=== PATIENT | female | born 1975 | race Caucasian/White ===

== ENCOUNTER 2017-01-11 08:10 | Emergency (ER) | payer OTHER | END 2017-01-11 08:40 | disposition home or self-care (01) | LOC: MADERS 08:10 | DX: H10.12 Acute atopic conjunctivitis, left eye (principal); G43.909 Migraine, unspecified, not intractable, without status migrainosus; F31.9 Bipolar disorder, unspecified; F41.9 Anxiety disorder, unspecified; Z79.899 Other long term (current) drug therapy | CPT/HCPCS: 99282 ==

== ENCOUNTER 2017-07-09 12:39 | Emergency (ER) | payer MEDICAID, OTHER ==
[2017-07-09] MEDS ORDERED: Ibuprofen 800 MG TAB ONE (13:32)
--- NOTE | 2017-07-09 13:48 | RAD ---
FOUR VIEWS LEFT KNEE: HISTORY: Left knee pain after trauma. FINDINGS: AP, lateral, and both oblique views left knee are obtained. The left knee is unremarkable. No evidence of left knee fractures, subluxations, or bony lesions see n. IMPRESSION: Normal 4 views left knee. POS: [facility]
== END 2017-07-09 13:58 | disposition home or self-care (01) ==
LOC: MADERS 12:39
DX: S80.02XA Contusion of left knee, initial encounter (principal); G43.909 Migraine, unspecified, not intractable, without status migrainosus; F41.9 Anxiety disorder, unspecified; F31.9 Bipolar disorder, unspecified; Z79.899 Other long term (current) drug therapy; W17.89XA Other fall from one level to another, initial encounter; Y93.01 Activity, walking, marching and hiking

== ENCOUNTER 2017-09-10 16:05 | Emergency (ER) | payer OTHER | END 2017-09-10 17:00 | disposition home or self-care (01) | LOC: MADERS 16:05 | DX: S80.12XA Contusion of left lower leg, initial encounter (principal); G43.909 Migraine, unspecified, not intractable, without status migrainosus; F41.9 Anxiety disorder, unspecified; F31.9 Bipolar disorder, unspecified; Z79.899 Other long term (current) drug therapy; X58.XXXA Exposure to other specified factors, initial encounter | CPT/HCPCS: 99283 ==

== ENCOUNTER 2020-11-15 10:20 | Emergency (ER) | payer BC ==
[2020-11-16 16:25] LABS: SARS-CoV-2 PCR by NAA Not Detected (NotDetected)
== END 2020-11-15 11:15 | disposition home or self-care (01) ==
LOC: MADERS 10:20
DX: J02.9 Acute pharyngitis, unspecified (principal); R05 Cough; R19.7 Diarrhea, unspecified; R09.81 Nasal congestion; Z20.822 Contact with and (suspected) exposure to COVID-19; G43.909 Migraine, unspecified, not intractable, without status migrainosus; Z79.899 Other long term (current) drug therapy
CPT/HCPCS: 99283; U0003; U0005

== ENCOUNTER 2020-11-24 15:40 | Emergency (ER) | payer BC ==
[2020-11-24] MEDS ORDERED: Dexamethasone 10 MG/ML VIAL ONE ×2 (17:27→17:37)
[2020-11-24] MEDS ORDERED: Ketorolac Tromethamine 30 MG/ML VIAL ONE (17:27)
[2020-11-24] MEDS ORDERED: Metoclopramide HCl 10 MG/2 ML VIAL ONE (17:27)
[2020-11-24 17:34] LABS: #Basophils 0.1 thou/uL (0.0-0.2); #Lymphocytes 1.1 thou/uL (1.20-3.40); #Monocytes 0.7 thou/uL (0.11-0.59); #Neutrophils 3.2 thou/uL (1.40-6.50); %Basophils 1.4 % (0.0-1.0); %Eosinophils 0.1 % (0.0-10.0); %Lymphocytes 21.9 % (21.0-51.0); %Monocytes 13.6 % (0.0-10.0); %Neutrophils 62.9 % (42.0-75.0); Hemoglobin 13.8 g/dL (12.0-16.0); Mean Corpuscular HGB CONC 32.9 g/dL (32.0-36.0); Mean Corpuscular Hemoglobin 30.4 pg (27.0-31.0); Mean Corpuscular Volume 92.3 fL (78.0-98.0); Mean Platelet Volume 10.9 fL (7.4-10.4); Platelet Count 165 thou/uL (130-400); Red Blood Cell (RBC) Count 4.53 mill/uL (4.20-5.40)
[2020-11-24 17:42] LABS: ALT (SGPT) 11 U/L (8-55); AST (SGOT) 12 U/L (5-34); Albumin 4.2 g/dL (3.5-5.0); Alkaline Phosphatase 44 U/L (40-110); Anion Gap 12 mmol/L (10-20); BUN (Urea Nitrogen) 6 mg/dL (7.0-18.7); Calc. Creatinine Clearance 0 mL/min (70-130); Calcium 9.4 mg/dL (7.8-10.44); Carbon Dioxide 21 mmol/L (22-29); Chloride 111 mmol/L (98-107); Globulin 2.6 g/dL (2.4-3.5); Glucose 85 mg/dL (70-105); Potassium 3.9 mmol/L (3.5-5.1); Protein, Total 6.8 g/dL (6.0-8.3); Sodium 140 mmol/L (136-145)
[2020-11-25 12:13] LABS: SARS-CoV-2 PCR by NAA DETECTED (NotDetected)
== END 2020-11-24 19:50 | disposition home or self-care (01) ==
LOC: MADERS 15:40
DX: U07.1 COVID-19 (principal); G43.909 Migraine, unspecified, not intractable, without status migrainosus
CPT/HCPCS: 71045; 80053; 84484; 85025; 93005; 96374; 96375; J1100; J1885; J2765; J7620; U0003; U0005

== ENCOUNTER 2021-10-15 12:25 | Emergency (ER) | payer BC | END 2021-10-15 13:47 | disposition home or self-care (01) | LOC: MADERS 12:25 | DX: S83.411A Sprain of medial collateral ligament of right knee, initial encounter (principal); K31.84 Gastroparesis; X50.1XXA Overexertion from prolonged static or awkward postures, initial encounter; Z79.899 Other long term (current) drug therapy ==

== ENCOUNTER 2022-01-09 15:25 | Emergency (ER) | payer BC ==
[2022-01-09] MEDS ORDERED: SUMAtriptan Succinate 6 MG/0.5 ML VIAL ONE (16:15)
== END 2022-01-09 18:07 | disposition home or self-care (01) ==
LOC: MADERS 15:25
DX: J06.9 Acute upper respiratory infection, unspecified (principal); R51.9 Headache, unspecified; K31.84 Gastroparesis; Z20.822 Contact with and (suspected) exposure to COVID-19; Z79.899 Other long term (current) drug therapy
CPT/HCPCS: 87081; 87430; 87804; 96372; 99283; J3030; U0003; U0005

== ENCOUNTER 2022-11-26 13:03 | Emergency (ER) | payer BC | END 2022-11-26 13:40 | disposition home or self-care (01) | LOC: MADERS 13:03 | DX: Z20.822 Contact with and (suspected) exposure to COVID-19 (principal) | CPT/HCPCS: 99283 ==

== ENCOUNTER 2023-12-05 17:38 | Emergency (ER) | payer BC, OTHER ==
[2023-12-05 18:17] LABS: Bilirubin Negative (Negative); Blood, Urine Negative (Negative); Clarity Clear (Clear); Glucose, Urine (Dipstick) Negative (Negative); Ketone, Urine Negative (Negative); Leukocyte Negative (Negative); Nitrite Negative (Negative); Protein, Urine (Dipstick) Negative (Neg-Trace); Specific Gravity, Urine 1.025 (1.005-1.030)
[2023-12-05] MEDS ORDERED: Ibuprofen 800 MG TAB ONE (18:17)
[2023-12-05] MEDS ORDERED: HYDROcodone/Acetaminophen 10/325 mg Tablet ONE (18:18)
[2023-12-05 18:24] LABS: Bacteria/HPF Rare-Few HPF (None Seen); CAUTI Indications for Culture Pelvic or flank pain; Mucous/LPF 1+ LPF (<2+); RBC/HPF 0-3 HPF (0-3); Urine Culture Reflex No No; WBC/HPF None Seen HPF (0-3)
[2023-12-05] MEDS ORDERED: Cyclobenzaprine 10 MG TAB ONE (19:13)
== END 2023-12-05 19:35 | disposition home or self-care (01) ==
LOC: MADERS 17:38
DX: M54.50 Low back pain, unspecified (principal); M46.1 Sacroiliitis, not elsewhere classified
CPT/HCPCS: 72131; 81001

== ENCOUNTER 2025-02-07 11:36 | Emergency (ER) | payer BC ==
[2025-02-07] MEDS ORDERED: Ibuprofen 800 MG TAB ONE (12:02)
== END 2025-02-07 12:01 | disposition home or self-care (01) ==
LOC: MADERS 11:36
DX: B07.9 Viral wart, unspecified (principal)
CPT/HCPCS: 99282